=== PATIENT | female | born 1995 ===

== ENCOUNTER 2020-02-22 10:15 | Outpatient (RCR) | payer BC, SELFPAY ==
--- NOTE | 2020-01-20 13:20 | PC.ADMIT ---
Patient is a 24 year old female who started the PHP program today on the advice of her PCP d/t increase in depression sxs with passive Si and increase in anxiety r/t the pandemic and grandmother who she was close to who recently . Patient is alert and oriented x4. Presents with depressed anxious mood. Reports passive SI r/t being unemployed and feeling much guilt for not being able to work. Stated, When I think about it I feel like a burden to my parents and that they would be better off without me . Pt denied plans or intent to hurt herself. Reports she was using marijuana to cope with how she is feeling. Stated she would smoke marijuana daily and at least once a week she would increase use to 3 bowls. Pt has not smoked marijuana since 01/18/20. Wants to continue to abstain and work on her mental health. Educated patient on the negative physical and mental health effects marijuana can have especially heavy use. Medications reconciled with patient and patient's pharmacy.
[2020-01-20 13:29] VITALS: BMI 18.8
--- NOTE | 2020-01-23 13:19 | P.HPPSP_ITS ---
HPI Chief Complaint: depression Sources of Information: patient interviewed and chart reviewed HPI Narrative: 24 yo female, referred by primary care team, with a history of depression, PMDD, OCD and social anxiety- since ~ age 11-12, reports sx exacerbation since April 2019 (when quarantine initiated for COVID-19). 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 Reports increasing cannabis use to assist in coping. Over the past months, with being at home, minimal structure and not having to deal with the outside world anxiety and depression have increased along with no desire to move forward . Reports feeling useless and hopeless along with feeling intense guilt. Describes intrusive SI which is passive, without plan or intent and exacerbation of OCD sx. Reports sx exacerbation with PMS timing, hx of dx of PMDD. Past Psychiatric History: In Pt: Denies PHP/IOP: Denies OP: Chaya ReaCwovtqkew-[id number] would like a new referral as they have worked together for a long while and have discussed pt needing a new perspective. Juliana Matos-psychopharmacolgy. Trials: Sertraline-3 years in high school. It was the best thing that ever happended to me-I was happy, ambitious, went to college in [place], but had a breakdown when I tapered it-I became anxious, homesick and had a break. Venlafaxine, Prozac-GI reaction, Lexapro, Paxil-violent GI reaction, Cymbalta- it has worked like Zoloft Reports at 80 mg helps anxiety, but not depression, Klonopin-helpful Medical Evaluation Reviewed: No (NA) [facility] Medical History Cannabis abuse, uncomplicated Major depressive disorder, recurrent severe without psychotic features No known health problems Social anxiety disorder Narrative: Denies hx of TBI, Seizure, possibly pending wisdom teeth extraction. Family History: anxiety, depression, alcoholism, PMDD Social History: currently not working. Single. No children. Lives between mom and dads home. [employer]. 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 Substance History: No hx detox Cannabis 3 bowls daily since 04/2019 Trauma History: School changes in sixth grade Breakdown on weekend at [facility] Vital Signs (24Hr): Body Mass Index 18.8 Meds/Allergies Meds Narrative: Cymbalta 60 mg daily- was 80 mg Oct 2019- Klonopin 0.5 mg bid Allergies Allergies Allergy/AdvReac Type Severity Reaction Status Date / Time fluoxetine [From Prozac] Allergy Vomiting Verified 01/20/20 12:55 paroxetine [From Paxil] Allergy Vomiting Verified 01/20/20 12:54 Mental Status Exam Mental Status Exam Patient Appearance: Well Grooomed and Appropriate Patient Orientation: Person, Place, Time and Situation Level of Consciousness: Awake, Appropriate and Alert Patient Behavior: Appropriate and Cooperative Mood Description: Anxious and Apprehensive Affect Description: Flat Patient Cognition Impaired: No Ability to Follow Directions: Excellent Speech Pattern: Clear, Appropriate, Spontaneous Speech and Coherent Memory Description: Intact Hallucinations: None Delusions: Not Present Thought Process: Intact Thought Content: positive for Intact Depressive Symptoms: Increased Anxiety, Diff. Making Decisions, Changes in Appetite, Significant Weight Loss, Loss of Int. in Activity, Feelings of Worthlessness, Hopelessness, Isolating-Friends/Family, Feelings of Guilt, Unhappiness, Increased Fatigue, Thoughts of /Suicide (passive, without plan or intent), Low Self Esteem, Loss of Energy and Difficulty Concentrating Judgement: Good Assessment & Plan Assessment & Plan (1) Major depressive disorder, recurrent severe without psychotic features: Status: Acute Code(s): F33.2 - Major depressive disorder, recurrent severe without psychotic features Assessment and Plan: Message left with out pt prescriber Juliana Matos to discuss Cymbalta titration. (2) Social anxiety disorder: Status: Acute Code(s): F40.10 - Social phobia, unspecified Assessment and Plan: -Klonopin 0.5 mg daily prn #10 1RF (3) PMDD (premenstrual dysphoric disorder): Status: Acute Code(s): F32.81 - Premenstrual dysphoric disorder Assessment and Plan: -Pt has completed all antidepressant trials approved by FDA -Will provide information on supplements. Certification I certify that partial hospital treatment is medically necessary due to the symptoms and problems resulting from the patient's mental illness and the failure to treat the patient at the partial hospital level of care would likely result in the patient requiring inpatient psychiatric care which could not be prevented at a less intensive level of care.
--- NOTE | 2020-01-26 16:27 | HO.PHPPROGNO ---
Subjective Subjective Date of Service: 01/27/20 Reason For Visit: depression Interim History: Discussed with Renee titration of Cymbalta as we have not heard from her OP team. Will increase to 90 mg daily to address depressive and anxious sx. Pt is pleased with this increase to attempt to address sx. Email sent to pt this week outlining resources for PMDD and available treatments. She reports she has received this and is looking at the resources. No current questions. Medication Compliance: Yes Side effects from medications: No Attending Groups: Yes Review of Systems Review of Systems Yes all other systems are reviewed and are negative Psychiatric: Reports anxiety and Reports depression Mental Status Exam Mental Status Exam Patient Orientation: Person, Place, Time and Situation Level of Consciousness: Awake, Appropriate and Alert Patient Behavior: Appropriate Mood Description: Anxious Affect Description: Constricted and Anxious Patient Cognition Impaired: No Ability to Follow Directions: Excellent Speech Pattern: Clear, Appropriate, Spontaneous Speech and Coherent Memory Description: Intact Hallucinations: None Delusions: Not Present Thought Process: Intact Thought Content: positive for Intact Depressive Symptoms: Increased Anxiety, Diff. Making Decisions, Hopelessness, Isolating-Friends/Family and Unhappiness Judgement: Good Diagnostics Vital Signs (24Hr): Body Mass Index 18.8 Assessment & Plan Assessment & Plan (1) Major depressive disorder, recurrent severe without psychotic features: Status: Acute Code(s): F33.2 - Major depressive disorder, recurrent severe without psychotic features Assessment and Plan: -Increase Cymbalta to 90 mg daily from 60 mg daily to address sx of depression, anxiety. By history, pt has had improved symptom relief on doses greater than 60 mg daily. (2) Social anxiety disorder: Status: Acute Code(s): F40.10 - Social phobia, unspecified (3) Cannabis abuse, uncomplicated: Status: Acute Code(s): F12.10 - Cannabis abuse, uncomplicated (4) PMDD (premenstrual dysphoric disorder): Status: Acute Code(s): F32.81 - Premenstrual dysphoric disorder Certification I certify that partial hospital treatment is medically necessary due to the symptoms and problems resulting from the patient's mental illness and the failure to treat the patient at the partial hospital level of care would likely result in the patient requiring inpatient psychiatric care which could not be prevented at a less intensive level of care. Greater than 50% of the session was spent on counseling and/or coordination of care Discharge Plan Discharge Attending provider: Jamison Santos Primary Care Provider: Ivelisse Jane Medications: New clonazepam [Klonopin] 0.5 mg tablet 0.5 mg PO DAILY PRN (Reason: anxiety) Qty: 10 RF: 1 duloxetine [Cymbalta] 30 mg capsule,delayed release(DR/EC) 30 mg PO DAILY Qty: 30 RF: 0 duloxetine [Cymbalta] 30 mg capsule,delayed release(DR/EC) 30 mg PO DAILY MDD Total daily dosage 90 mg Qty: 30 RF: 0 No Action duloxetine [Cymbalta] 60 mg Capsule,Delayed Release(Dr/Ec) 60 mg PO DAILY RF: 0 Referrals: Ivelisse Jane NP [Primary Care Provider] - Telehealth Telehealth Location of provider rendering services: practice address Location of patient: address on file Patient Identification confirmed using: Name, : Yes Telehealth method: voice only Patient verbally consented to treatment: Yes Patient verbally consented to billing insurance company: Yes Patient informed of any privacy concerns related to visit: Yes Time spent with patient (mins): 15
--- NOTE | 2020-02-01 11:35 | HO.PHPPROGNO ---
Subjective Subjective Date of Service: 02/01/20 Reason For Visit: depression Interim History: Patient reports she increased Cymbalta to 90mg on Thursday, denies any side effects Positive experience with PHP. Has outpatient appts all set Medication Compliance: Yes Side effects from medications: No Attending Groups: Yes Review of Systems Constitutional: Reports as per HPI and Reports no additional constitutional complaints Mental Status Exam Mental Status Exam Patient Appearance: Well Grooomed and Appropriate Level of Consciousness: Awake, Appropriate and Alert Patient Behavior: Appropriate Mood Description: Happy Affect Description: Happy Ability to Follow Directions: Excellent Speech Pattern: Clear Hallucinations: None Delusions: Not Present Thought Process: Goal Oriented Thought Content: positive for Intact and positive for Goal Oriented Judgement: Good Diagnostics Vital Signs (24Hr): Body Mass Index 18.8 Assessment & Plan Assessment & Plan (1) Major depressive disorder, recurrent severe without psychotic features: Status: Acute Code(s): F33.2 - Major depressive disorder, recurrent severe without psychotic features Assessment and Plan: follow up PRN Certification I certify that partial hospital treatment is medically necessary due to the symptoms and problems resulting from the patient's mental illness and the failure to treat the patient at the partial hospital level of care would likely result in the patient requiring inpatient psychiatric care which could not be prevented at a less intensive level of care. Greater than 50% of the session was spent on counseling and/or coordination of care Discharge Plan Discharge Attending provider: Jamison Santos Primary Care Provider: Ivelisse Jane Medications: New clonazepam [Klonopin] 0.5 mg tablet 0.5 mg PO DAILY PRN (Reason: anxiety) Qty: 10 RF: 1 duloxetine [Cymbalta] 30 mg capsule,delayed release(DR/EC) 30 mg PO DAILY Qty: 30 RF: 0 duloxetine [Cymbalta] 30 mg capsule,delayed release(DR/EC) 30 mg PO DAILY MDD Total daily dosage 90 mg Qty: 30 RF: 0 No Action duloxetine [Cymbalta] 60 mg Capsule,Delayed Release(Dr/Ec) 60 mg PO DAILY RF: 0 Referrals: Ivelisse Jane NP [Primary Care Provider] - Telehealth Telehealth Location of provider rendering services: practice address Location of patient: address on file Patient Identification confirmed using: Name, : Yes Telehealth method: video Patient verbally consented to treatment: Yes Patient verbally consented to billing insurance company: Yes Time spent with patient (mins): 10
--- NOTE | 2020-02-06 12:10 | HO.PHPPROGNO ---
Subjective Subjective Date of Service: 02/06/20 Reason For Visit: depression Interim History: Patient's last day will be on , has outpatient provider appts already in place Still tolerating Cymbalta dose bright affect during visit--enjoying spending time with her family Medication Compliance: Yes Side effects from medications: No Attending Groups: Yes Review of Systems Acute medical concerns: No Medical Review of Systems: unchanged Mental Status Exam Mental Status Exam Patient Appearance: Well Grooomed Level of Consciousness: Awake, Appropriate and Alert Patient Behavior: Appropriate Mood Description: Happy Affect Description: Happy Ability to Follow Directions: Excellent Speech Pattern: Clear Memory Description: Intact Delusions: Not Present Thought Process: Goal Oriented Thought Content: positive for Goal Oriented Judgement: Good Diagnostics Vital Signs (24Hr): Body Mass Index 18.8 Assessment & Plan Assessment & Plan (1) Major depressive disorder, recurrent severe without psychotic features: Status: Acute Code(s): F33.2 - Major depressive disorder, recurrent severe without psychotic features Assessment and Plan: No need for refills Has outpatient appts in place Certification I certify that partial hospital treatment is medically necessary due to the symptoms and problems resulting from the patient's mental illness and the failure to treat the patient at the partial hospital level of care would likely result in the patient requiring inpatient psychiatric care which could not be prevented at a less intensive level of care. Greater than 50% of the session was spent on counseling and/or coordination of care Discharge Plan Discharge Attending provider: Jamison Santos Primary Care Provider: Ivelisse Jane Medications: New clonazepam [Klonopin] 0.5 mg tablet 0.5 mg PO DAILY PRN (Reason: anxiety) Qty: 10 RF: 1 duloxetine [Cymbalta] 30 mg capsule,delayed release(DR/EC) 30 mg PO DAILY Qty: 30 RF: 0 duloxetine [Cymbalta] 30 mg capsule,delayed release(DR/EC) 30 mg PO DAILY MDD Total daily dosage 90 mg Qty: 30 RF: 0 No Action duloxetine [Cymbalta] 60 mg Capsule,Delayed Release(Dr/Ec) 60 mg PO DAILY RF: 0 Referrals: Ivelisse Jane NP [Primary Care Provider] - Telehealth Telehealth Location of provider rendering services: practice address Location of patient: address on file Patient Identification confirmed using: Name, : Yes Telehealth method: video Patient verbally consented to treatment: Yes Patient verbally consented to billing insurance company: Yes Time spent with patient (mins): 15
--- NOTE | 2020-02-14 10:06 | PC.NURSE ---
I called [facility] to inquire about referral to the [facility]. I was transferred to Stephany Carranza, the director, and left her a message asking about referral and if groups are still running in Thao Mcgovern's absence.
--- NOTE | 2020-02-14 10:21 | PC.NURSE ---
I called Catrina Riojas, [facility], at the [facility] [place] ([phone]). I LM for her informing about referral to DBT groups for pt.
--- NOTE | 2020-02-14 13:46 | P.PNPSP_ITS ---
Subjective Subjective Date of Service: 02/14/20 Reason For Visit: depression Interim History: Pleased she decided to stay longer. Discussed PMDD and how she plans to address this with providers. Tearful, feeling overwhelmed by emotion. Medication Compliance: Yes Side effects from medications: No Attending Groups: Yes Review of Systems Constitutional: Reports as per HPI Mental Status Exam Mental Status Exam Patient Appearance: Well Grooomed and Appropriate Level of Consciousness: Appropriate Patient Behavior: Appropriate Mood Description: Anxious Affect Description: Anxious Speech Pattern: Clear Thought Process: Goal Oriented Thought Content: positive for Goal Oriented Depressive Symptoms: Increased Anxiety Judgement: Good Diagnostics Vital Signs (24Hr): Body Mass Index 18.8 Assessment & Plan Assessment & Plan (1) Major depressive disorder, recurrent severe without psychotic features: Status: Acute Code(s): F33.2 - Major depressive disorder, recurrent severe without psychotic features Assessment and Plan: Refills provided for 90mg Cymbalta Plans to discuss PMDD with [employer] OPERATOR and psychiatric provider at next appt. (2) PMDD (premenstrual dysphoric disorder): Status: Acute Code(s): F32.81 - Premenstrual dysphoric disorder Certification I certify that partial hospital treatment is medically necessary due to the symptoms and problems resulting from the patient's mental illness and the failure to treat the patient at the partial hospital level of care would likely result in the patient requiring inpatient psychiatric care which could not be prevented at a less intensive level of care. Greater than 50% of the session was spent on counseling and/or coordination of care Discharge Plan Discharge Attending provider: Jamison Santos Primary Care Provider: Ivelisse Jane Medications: New clonazepam [Klonopin] 0.5 mg tablet 0.5 mg PO DAILY PRN (Reason: anxiety) Qty: 10 RF: 1 duloxetine [Cymbalta] 30 mg capsule,delayed release(DR/EC) 30 mg PO DAILY Qty: 30 RF: 0 duloxetine 60 mg capsule,delayed release(DR/EC) 60 mg PO DAILY Qty: 30 RF: 0 Discontinued duloxetine [Cymbalta] 60 mg Capsule,Delayed Release(Dr/Ec) 60 mg PO DAILY RF: 0 Referrals: Ivelisse Jane NP [Primary Care Provider] - Telehealth Telehealth Location of provider rendering services: practice address Location of patient: address on file Patient Identification confirmed using: Name, : Yes Telehealth method: video Patient verbally consented to treatment: Yes Patient verbally consented to billing insurance company: Yes Time spent with patient (mins): 15
--- NOTE | 2020-02-15 08:23 | PC.NURSE ---
I called [facility] to inquire about their DBT group for pt. I was told the studio receptionist will have Eli call me back, as she was iunsure of the group is still running. I have not yet heard back from [facility] or from [facility].
--- NOTE | 2020-02-15 14:03 | PC.NURSE ---
Stephany Burger called back from [facility] regarding DBT group. She said they only take clients who are members of their practice already.
--- NOTE | 2020-02-15 14:05 | PC.NURSE ---
I called [facility] to inquire about DBT group. The woman at central intake said they have a group that runs Wednesdays at 9am, but that shes not sure if they take BC/BS. She asked me to call the clinicialns that run the groups, and I did. I LM for both. ([phone], Mary [phone], Jim Tan [phone]).
--- NOTE | 2020-02-15 15:26 | PC.NURSE ---
Addendum entered by Ambreen Borrero 02/16/20 07:48: t's appt with [facility] is 02/28/2020, not 2019. Original Note: I recieved a call from Mary at [facility] and spoke to her. She will take BC?BS. She told me about potential DBT options. I then called and asked pt if she might be interested, and she said yes, and gave me permission to refer. I called Mary back and made an intake appt for 9am, 02/27/2019 for an intake. Mary will call her on the phone for this. She can start the group the next day, at 9am. I called pt and she sounded excited.
--- NOTE | 2020-02-21 13:34 | HO.PHPPROGNO ---
Subjective Subjective Date of Service: 02/21/20 Reason For Visit: depression Interim History: Patient reporting that she has been reviewing literature related to PMDD and has been considering starting new vitamins and minerals, encouraged patient to discuss with psychiatric provider prior to starting as there are certain supplements that can interfere with medications. Patient feels better prepared to discharge. Requesting refill on cymbalta 30mg to cover her until her next appt with her psychiatric provider tearfulness, feelings pf being overwhelmed, and anxiety more manageable at time of visit Medication Compliance: Yes Side effects from medications: No Attending Groups: Yes Review of Systems Acute medical concerns: No Medical Review of Systems: unchanged Review of Systems Constitutional: Reports as per HPI Mental Status Exam Mental Status Exam Patient Appearance: Well Grooomed and Appropriate Level of Consciousness: Awake, Appropriate and Alert Patient Behavior: Appropriate and Cooperative Mood Description: Happy Affect Description: Happy and Anxious Ability to Follow Directions: Excellent Speech Pattern: Clear and Appropriate Hallucinations: None Delusions: Not Present Thought Process: Rumination and Goal Oriented Thought Content: positive for Goal Oriented Depressive Symptoms: Increased Anxiety, Crying Spells and Unhappiness Judgement: Good Diagnostics Vital Signs (24Hr): Body Mass Index 18.8 Assessment & Plan Assessment & Plan (1) Major depressive disorder, recurrent severe without psychotic features: Status: Acute Code(s): F33.2 - Major depressive disorder, recurrent severe without psychotic features Assessment and Plan: refill sent in for 30mg Cymbalta (2) PMDD (premenstrual dysphoric disorder): Status: Acute Code(s): F32.81 - Premenstrual dysphoric disorder Assessment and Plan: education regarding use of minerals to follow up with provider regarding this Certification I certify that partial hospital treatment is medically necessary due to the symptoms and problems resulting from the patient's mental illness and the failure to treat the patient at the partial hospital level of care would likely result in the patient requiring inpatient psychiatric care which could not be prevented at a less intensive level of care. Greater than 50% of the session was spent on counseling and/or coordination of care Discharge Plan Discharge Attending provider: Jamison Santos Primary Care Provider: Ivelisse Jane Additional Instructions: *Appt with geovanna Campbell, therapist, on 02/27/20, at 11:30 am * Phone appt (intake) with Mary from [facility] for DBT weekly coping skills group on 02/28/20. The group will begin the following day, 02/29/20. *Appt with Juliana Matos [facility] provider, on 03/12/20, at 2pm. * Follow-up with [facility]. Medications: New clonazepam [Klonopin] 0.5 mg tablet 0.5 mg PO DAILY PRN (Reason: anxiety) Qty: 10 RF: 1 duloxetine 60 mg capsule,delayed release(DR/EC) 60 mg PO DAILY Qty: 30 RF: 0 duloxetine [Cymbalta] 30 mg capsule,delayed release(DR/EC) 30 mg PO DAILY Qty: 30 RF: 0 Discontinued duloxetine [Cymbalta] 60 mg Capsule,Delayed Release(Dr/Ec) 60 mg PO DAILY RF: 0 Referrals: Ivelisse Jane NP [Primary Care Provider] - Telehealth Telehealth Location of provider rendering services: practice address Location of patient: address on file Patient Identification confirmed using: Name, : Yes Telehealth method: video Patient verbally consented to treatment: Yes Patient verbally consented to billing insurance company: Yes Time spent with patient (mins): 13
== END 2020-02-22 23:55 | disposition home or self-care (01) ==
LOC: HO.PHPA 10:15
PROVIDERS: PCP Nurse Practitioner; Visit Provider Psychiatry & Neurology Psychiatry
DX: F33.2 Major depressive disorder, recurrent severe without psychotic features (principal); F32.81 Premenstrual dysphoric disorder; F40.10 Social phobia, unspecified; F12.10 Cannabis abuse, uncomplicated
CPT/HCPCS: 90791; 90792; 90853; 99213